=== PATIENT | female | born 1980 | race Caucasian/White ===

== ENCOUNTER 2023-03-06 09:28 | Outpatient (CLI) | payer MEDICARE, MEDICAID | END 2023-03-06 09:29 | disposition home or self-care (01) | LOC: CSHWCC 09:28 | PROVIDERS: ATTEND Nurse Practitioner Family | DX: L89.324 Pressure ulcer of left buttock, stage 4 (principal); I87.313 Chronic venous hypertension (idiopathic) with ulcer of bilateral lower extremity; L97.429 Non-pressure chronic ulcer of left heel and midfoot with unspecified severity; L97.319 Non-pressure chronic ulcer of right ankle with unspecified severity; R60.0 Localized edema | CPT/HCPCS: 11043; 11046; 82962; 97139; 97605; G0463; 36416; 99205 ==

== ENCOUNTER 2023-04-24 09:45 | Outpatient (CLI) | payer MEDICARE, MEDICAID | END 2023-04-24 09:46 | disposition home or self-care (01) | LOC: CSHWCC 09:45 | PROVIDERS: ATTEND Nurse Practitioner Family | DX: L89.324 Pressure ulcer of left buttock, stage 4 (principal); I87.313 Chronic venous hypertension (idiopathic) with ulcer of bilateral lower extremity; L97.419 Non-pressure chronic ulcer of right heel and midfoot with unspecified severity; L97.429 Non-pressure chronic ulcer of left heel and midfoot with unspecified severity; R60.0 Localized edema | CPT/HCPCS: 97605 ==

== ENCOUNTER 2023-06-08 14:20 | Outpatient (CLI) | payer MEDICARE, MEDICAID | END 2023-06-08 14:21 | disposition home or self-care (01) | LOC: CSHWCC 14:20 | PROVIDERS: ATTEND Nurse Practitioner Family | DX: R60.0 Localized edema (principal); L97.419 Non-pressure chronic ulcer of right heel and midfoot with unspecified severity; I87.313 Chronic venous hypertension (idiopathic) with ulcer of bilateral lower extremity; L97.429 Non-pressure chronic ulcer of left heel and midfoot with unspecified severity; L89.324 Pressure ulcer of left buttock, stage 4 | CPT/HCPCS: 11043 ==

== ENCOUNTER 2023-06-29 14:30 | Outpatient (CLI) | payer MEDICARE, MEDICAID | END 2023-06-29 14:31 | disposition home or self-care (01) | LOC: CSHWCC 14:30 | PROVIDERS: ATTEND Nurse Practitioner Family | DX: L89.324 Pressure ulcer of left buttock, stage 4 (principal); I87.313 Chronic venous hypertension (idiopathic) with ulcer of bilateral lower extremity; L97.429 Non-pressure chronic ulcer of left heel and midfoot with unspecified severity; L97.419 Non-pressure chronic ulcer of right heel and midfoot with unspecified severity; R60.0 Localized edema | CPT/HCPCS: 97139; G0463; 99214 ==